=== PATIENT | female | born 1960 | race Caucasian/White ===

== ENCOUNTER 2018-03-16 09:59 | Emergency (ER) | payer OTHER ==
[~2018-03-16] VITALS: Ht 142.2 cm; Wt 65.9 kg
[2018-03-16 10:08] VITALS: BP 126/70
[2018-03-16] MEDS: KETOROLAC 30 MG/ML VIAL IM ONE (10:50)
== END 2018-03-16 11:15 | disposition home or self-care (01) ==
LOC: MED 09:59
DX: S46.911A Strain of unspecified muscle, fascia and tendon at shoulder and upper arm level, right arm, initial encounter (principal); X58.XXXA Exposure to other specified factors, initial encounter; Y93.89 Activity, other specified; Y92.89 Other specified places as the place of occurrence of the external cause; Y99.8 Other external cause status
CPT/HCPCS: 73030; 96372; 99284; J1885